=== PATIENT | male | born 1940 | race Caucasian/White ===

== ENCOUNTER 2016-12-17 12:23 | Emergency (ER) | payer MEDICARE, OTHER ==
[2016-12-17 12:37] VITALS: BP 155/90
[2016-12-17] MEDS ORDERED: LIDOCAINE 1% 2 ML VIAL ONE (13:12)
[2016-12-17] MEDS ORDERED: SULFAMETH/TRIMETH DS 800/160 MG TABLET PO STA (13:29)
[2016-12-17] MEDS ORDERED: SULFAMETH/TRIMETH DS 800/160 MG TABLET PO ONE (13:31)
--- NOTE | 2016-12-17 13:32 | ED Physician Documentation ---
History of Present Illness - Stated complaint Stated Complaint: R EAR SWOLLEN - Chief complaint Chief Complaint: General - History obtained from History obtained from: Patient - History of Present Illness Timing: How many days ago (3) Pain level max: 3 Pain level now: 3 Improved by: nothing Worsened by: nothing - Additonal information Additional information: Patient states that approximately 3 days ago he noted swelling to the right preauricular area. Increasing pain today. No erythema. Has never had this before. Denies any injury. Review of Systems Constitutional: denies: Fever, Chills Eyes: denies: Decreased vision Ears: denies: Drainage/discharge Nose: denies: Rhinorrhea / runny nose, Congestion Throat: denies: Sore throat Cardiac: denies: Chest pain / pressure Respiratory: denies: Cough GI: denies: Nausea, Vomiting, Diarrhea Skin: denies: Rash Neurologic: denies: Headache PD PAST MEDICAL HISTORY - Past Medical History Past Medical History: Yes Cardiovascular: Hypertension, High cholesterol : Benign prostate hypertrophy - Past Surgical History Past Surgical History: Yes HEENT: Cataracts Derm: Skin cancer surgery - Present Medications Home Medications: Ambulatory Orders Medication Instructions Recorded Confirmed Blood Pressure Med 12/17/16 Finasteride 5 mg DAILY 12/17/16 12/17/16 Statin Unknown Dose 12/17/16 Sulfamethox/Trimeth 800/160 1 each PO BID #14 tablet 12/17/16 [Bactrim Ds 800/160] - Allergies Allergies/Adverse Reactions: Allergies Allergy/AdvReac Type Severity Reaction Status Date / Time Penicillins Allergy Unknown Verified 12/17/16 12:31 - Social History Does the pt smoke?: No Smoking Status: Never smoker Does the pt drink ETOH?: Yes ETOH Use: Wine Does the pt have substance abuse?: Yes Substance Use and Type: Marijuana - Immunizations Immunizations are current?: Yes - POLST Patient has POLST: No PD ED PE NORMAL - Vitals Vital signs reviewed: Yes - General General: Alert and oriented X 3, No acute distress - HEENT HEENT: Moist mucous membranes, Other (Right preauricular area has moderate swelling, palpable 1.5 x 1.5 cm area of induration. No overlying skin erythema. ) - Neck Neck: Supple, no meningeal sign - Cardiac Cardiac: RRR - Respiratory Respiratory: No respiratory distress, Clear bilaterally - Neuro Neuro: Alert and oriented X 3 Results - Vitals Vitals: Vital Signs - 24 hr 12/17/16 12:30 Temperature 36.8 C Heart Rate 86 Respiratory 18 Rate Blood Pressure 155/90 H O2 Saturation 100 Oxygen O2 Source Room air Procedures - Abscess I&D (location) Right preauricular Preparation: Confirmed with ultrasound, Chlorhexadine, Lidocaine 1% Incision: Needle aspiration Other: Pt tolerated well, Dressing applied, Antibiotic prescribed PD MEDICAL DECISION MAKING - ED course Complexity details: considered differential, d/w patient ED course: Patient is a 76-year-old male who presents to the emergency department with right preauricular swelling. Bedside ultrasound reveals a well-circumscribed mass, approximately 1 x 1 cm. Appears to have a hypoechoic area in the center. After discussion, he decided he was comfortable having a needle aspiration performed to see if this would reveal any fluid. This was done under ultrasound guidance, the needle was advanced into the cyst, however there was no return of substance. Possible that this is a thickened substance that was unable to be withdrawn through an 18-gauge catheter. Because of the location, he declines an incision at this time. We will trial him on antibiotics and see how he progresses. He will return if he worsens. He is well appearing, nontoxic. Afebrile here. Patient counseled regarding signs and symptoms for which I believe and urgent re-evaluation would be necessary. Patient with good understanding of and agreement to plan and is comfortable going home at this time This document was made in part using voice recognition software. While efforts are made to proofread this document, sound alike and grammatical errors may occur. Departure - Departure Disposition: 01 Home, Self Care Clinical Impression: Infected cyst of skin Condition: Good Instructions: ED Cyst Sebaceous Infec Abx Tx Follow-Up: your,doctor in 3 days for recheck [Other] Prescriptions: Sulfamethox/Trimeth 800/160 [Bactrim Ds 800/160] 1 each PO BID #14 tablet Comments: Take all antibiotics until gone. Return if you worsen. This may be a preauricular cyst that need the entire sac removed once the infection is cleared. Discharge Date/Time: 12/17/16 13:36
== END 2016-12-17 13:36 | disposition home or self-care (01) ==
LOC: ED 12:23
DX: Q18.1 Preauricular sinus and cyst (principal); I10 Essential (primary) hypertension; E78.00 Pure hypercholesterolemia, unspecified; N40.0 Benign prostatic hyperplasia without lower urinary tract symptoms
CPT/HCPCS: 10160; 99283; A9270